=== PATIENT | female | born 1935 | race Caucasian/White ===

== ENCOUNTER → 2016-12-18 | Outpatient (CLI) | payer MEDICARE, BC ==
[~2016-12-18] MED LIST: BENI20TA26 PO; ZOFR4TAB3 SL
--- NOTE | 2016-12-22 09:55 | RSPPFT ---
DATE OF PROCEDURE: 12/18/16 COMMENTS: VOLUMES DYNAMIC: FVC and FEV1 moderately reduced. STATIC: TLC, VTG normal; RV mildly increased. FLOWS: FEV1% normal; FEF 25-75 severely reduced. DIFFUSION: Normal. FLOW VOLUME LOOP: Terminal airflow obstruction. IMPRESSION: Mild to moderate obstructive ventilatory defect with mild hyperinflation. Diffusion is normal. Airways resistance is mildly increased. There is minimal change post-bronchodilator.
== END ==
LOC: HRSP 12:35
PROVIDERS: ATTEND Internal Medicine
DX: J45.909 Unspecified asthma, uncomplicated (principal)
CPT/HCPCS: 94060; 94620; 94726; 94729; 95012

== ENCOUNTER 2017-12-19 20:07 | Emergency (ER) | payer MEDICARE, BC ==
[2017-12-19 20:12] VITALS: BP 204/87; PULSE 81; RESP 20; TEMP 98.2; O2SAT 95
[2017-12-19] MEDS ORDERED: KETOROLAC TROMETHAMINE 30 MG/ML (IVP) VIAL IV PUSH ONE (20:45)
[2017-12-19] MEDS ORDERED: SODIUM CHLOR 0.9% 1000 ML INJ 1,000 ML IV SCH (20:45)
[2017-12-19] MEDS ORDERED: ONDANSETRON HCL 4 MG/2 ML VIAL IV PUSH ONE (20:45)
[2017-12-19] MEDS ORDERED: SODIUM CHLORIDE 0.9% FLUSH 10 ML FLUSH IVF PRN (20:45)
[2017-12-19 20:48] LABS: BASOPHIL % 0.5 % (0.0-2.0); EOSINOPHIL # 0.2 TH/MM3 (0-0.4); EOSINOPHIL % 2.4 % (0.0-4.0); HEMATOCRIT 38.3 % (35.0-46.0); HEMOGLOBIN 12.3 GM/DL (11.6-15.3); LYMPH % 33.9 % (9.0-44.0); LYMPHOCYTE # 2.6 TH/MM3 (1.0-4.8); MEAN CELL VOLUME 82.2 FL (80.0-100.0); MEAN CORPUSCULAR HEMOGLOBIN 26.3 PG (27.0-34.0); MEAN PLATELET VOLUME 7.8 FL (7.0-11.0); MONO % 10.2 % (0.0-8.0); MONOCYTE # 0.8 TH/MM3 (0-0.9); PLATELET COUNT 271 TH/MM3 (150-450); RED BLOOD COUNT 4.66 MIL/MM3 (4.00-5.30); RED CELL DISTRIBUTION WIDTH 14.3 % (11.6-17.2); WHITE BLOOD COUNT 7.6 TH/MM3 (4.0-11.0)
[2017-12-19 20:55] LABS: BILIRUBIN, URINE NEG (NEG); BLOOD, URINE NEG (NEG); CHLORIDE 106 MEQ/L (98-107); GLUCOSE,URINE NEG (NEG); KETONE, URINE 40 mg/dL (NEG); NITRITE,URINE NEG (NEG); PH, URINE 5.5 (5.0-8.5); SODIUM (NA) 139 MEQ/L (136-145); URINE COLOR YELLOW (YELLW/STRAW); URINE LEUKOCYTE ESTERASE SMALL (NEG)
[2017-12-19 20:59] LABS: ALBUMIN 3.9 GM/DL (3.4-5.0); BICARBONATE 24.1 MEQ/L (21.0-32.0); BLOOD UREA NITROGEN 17 MG/DL (7-18); CALCIUM 9.1 MG/DL (8.5-10.1); GLUCOSE,RANDOM 91 MG/DL (74-106)
[2017-12-19 21:02] LABS: ALT (GPT) 22 U/L (10-53); AST (GOT) 29 U/L (15-37); GLOMERULAR FILTRATION RATE 69 ML/MIN (>89)
[2017-12-19 21:04] LABS: TOTAL BILIRUBIN ADULT 0.6 MG/DL (0.2-1.0); TOTAL PROTEIN 7.8 GM/DL (6.4-8.2)
[2017-12-19 21:05] LABS: ALKALINE PHOSPHATASE 59 U/L (45-117)
[2017-12-19 21:27] LABS: MUCUS URINE OCC /lpf (OCC); SQUAMOUS EPITHELIAL CELL URINE 0-5 /hpf (0-5)
[2017-12-19 21:28] LABS: WHITE BLOOD CELL CLUMPS RARE
--- NOTE | 2017-12-19 21:28 | RADRPT ---
EXAM DATE/TIME: 12/19/2017 21:02 [facility] COMPARISON: CT ABDOMEN & PELVIS W/O CONTRAST, November 21, 2015, 14:53. INDICATIONS : Right flank pain. ORAL CONTRAST: No oral contrast ingested. RADIATION DOSE: 5.71 CTDIvol (mGy) MEDICAL HISTORY : Carcinoma, breast. Cerebrovascular disease. Hypertension.Migraines. SURGICAL HISTORY : Appendectomy. Hysterectomy. ENCOUNTER: Initial ACUITY: 1 day PAIN SCALE: 9/10 LOCATION: Right flank TECHNIQUE: Volumetric scanning of the abdomen and pelvis was performed. Using automated exposure control and ad justment of the mA and/or kV according to patient size, radiation dose was kept as low as reasonably achievable to obtain optimal diagnostic quality images. DICOM format image data is available electro nically for review and comparison. FINDINGS: LOWER LUNGS: The visualized lower lungs are clear. LIVER: The visualized portions of the liver demonstrate homogeneous density without lesion. There is no dil ation of the biliary tree. No calcified gallstones. SPLEEN: Normal size without lesion. PANCREAS: Within normal limits. KIDNEYS: Normal in size and shape. There is no mass, stone, or hydronephrosis. ADRENAL GLANDS: Within normal limits. Arterial calcifications are present. VASCULAR: There is no aortic aneurysm. BOWEL/MESENTERY: There are scattered colonic diverticula in the sigmoid region. ABDOMINAL WALL: Within normal limits. RETROPERITONEUM: There is no lymphadenopathy. BLADDER: No wall thickening or mass. REPRODUCTIVE: Within normal limits. INGUINAL: There is no lymphadenopathy or hernia. MUSCULOSKELETAL: There is grade 1 anterior spondylolisthesis of L4 and L5. There is facet hypertrophy at this level. CONCLUSION: 1. No acute abnormality seen. No renal stones are seen. 2. Scattered colonic diverticula without inflammatory change. 3. Grade 1 anterior spondylolisthesis of L4 and L5 secondary to facet hypertrophy. Aman Sanders MD on December 19, 2017 at 21:22 Board Certified Radiologist. This report was verified electronically.
[2017-12-19 21:29] LABS: RBC, URINE 0-3 /hpf (0-3)
[2017-12-19 21:30] VITALS: BP 158/85; PULSE 85; RESP 16; TEMP 98.3; O2SAT 97; O2SAT 98
[2017-12-19] MEDS ORDERED: NITROFURANTOIN MONOHYD MACROCR 100 MG CAP PO ONE (22:30)
--- NOTE | 2017-12-19 22:47 | PD ---
HPI Chief Complaint: Flank/Kidney Pain Time Seen by Provider: 20:35 Travel History International Travel<30 days: No Contact w/Intl Traveler<30days: No Traveled to known affect area: No History of Present Illness HPI 81-year-old female presents to the emergency department for sudden onset right- sided flank pain radiating. Sudden onset today with worsening symptoms this evening. Says she was nausea no vomiting no diarrhea. Patient denies dietary indiscretion well water ingestion or foreign travel. Patient denies history of kidney stones. Patient denies history of injury or fall. Patient is unable to identify exacerbating or alleviating factors. PFSH Past Medical History Narrative Medical Dyslipidemia hypertension TIA; nursing notes REVIEWED Cardiovascular Problems: Yes (HTN, CHOL) High Cholesterol: Yes Cerebrovascular Accident: Yes (TIA) Diminished Hearing: No Hypertension: Yes Immunizations Current: Yes Migraines: Yes (HERIDITARY HEMIPLEGIC SILENT MIGRAINES) Tetanus Vaccination: > 5 Years Past Surgical History Appendectomy: Yes Hysterectomy: Yes Tonsillectomy: Yes Other Surgery: Yes (left breast for CA) Family History Family Myocardial Infarction: Yes Social History Alcohol Use: No Tobacco Use: No Substance Use: No Allergies-Medications (Allergen,Severity, Reaction): Coded Allergies: codeine (Unverified Allergy, Severe, COMA, 12/20/17) diatrizoate meglumine (Unverified Allergy, Severe, Hives, 12/20/17) PT STATES SHE PASSED OUT FROM EVENT WHEN GIVEN doxycycline (Unverified Allergy, Severe, Hives, 12/20/17) gadobenic acid (Unverified Allergy, Severe, Hives, 12/20/17) PT STATES SHE PASSED OUT FROM EVENT WHEN GIVEN gadodiamide (Unverified Allergy, Severe, Hives, 12/20/17) PT STATES SHE PASSED OUT FROM EVENT WHEN GIVEN gadoteridol (Unverified Allergy, Severe, Hives, 12/20/17) PT STATES SHE PASSED OUT FROM EVENT WHEN GIVEN iodixanol (Unverified Allergy, Severe, Hives, 12/20/17) PT STATES SHE PASSED OUT FROM EVENT WHEN GIVEN iohexol (Unverified Allergy, Severe, Hives, 12/20/17) PT STATES SHE PASSED OUT FROM EVENT WHEN GIVEN levofloxacin (Unverified Allergy, Severe, Nausea/Vomiting, 12/20/17) minocycline (Unverified Allergy, Severe, Hives, 12/20/17) morphine (Unverified Allergy, Severe, Nausea/Vomiting, 12/20/17) shellfish derived (Unverified Allergy, Severe, Hives, 12/20/17) tigecycline (Unverified Allergy, Severe, Hives, 12/20/17) Uncoded Allergies: TETANUS (Allergy, Severe, Itching, 01/04/14) Reported Meds & Prescriptions Reported Meds & Active Scripts Active Macrobid (Nitrofurantoin Monoh/Nitrofur Macro) 100 Mg Cap 100 Mg PO BID 7 Days Valtrex (Valacyclovir HCl) 1,000 Mg Tab 1,000 Mg PO TID 7 Days Reported Benicar Hct (Olmesartan-Hydrochlorothiazide) 20-12.5 mg Tab 1 Tab PO DAILY Review of Systems Except as stated in HPI: all other systems reviewed are Neg Physical Exam Narrative GENERAL: Well-developed well-nourished female in obvious discomfort appearing younger than her stated age no respiratory distress. SKIN: Warm and dry. HEAD: Normocephalic. EYES: No scleral icterus. No injection or drainage. NECK: Supple, trachea midline. No JVD or lymphadenopathy. CARDIOVASCULAR: Regular rate and rhythm without murmurs, gallops, or rubs. RESPIRATORY: Breath sounds equal bilaterally. No accessory muscle use. GASTROINTESTINAL: Abdomen soft, non-tender, nondistended. MUSCULOSKELETAL: No cyanosis, or edema. BACK: Nontender without obvious deformity. No CVA tenderness. Data Data Last Documented VS Vital Signs Date Time Temp Pulse Resp B/P (MAP) Pulse Ox O2 Delivery O2 Flow Rate FiO2 12/19/17 23:22 87 16 180/85 (116) 97 Room Air 12/19/17 20:12 98.2 Orders Orders Complete Blood Count With Diff (12/19/17 20:35) Comprehensive Metabolic Panel (12/19/17 20:35) Urinalysis - C+S If Indicated (12/19/17 20:35) Ct Abd/Pel W/O Iv Contrast (12/19/17 20:35) Ecg Monitoring (12/19/17 20:35) Iv Access Insert/Monitor (12/19/17 20:35) Ketorolac Inj (Toradol Inj) (12/19/17 20:45) Ondansetron Inj (Zofran Inj) (12/19/17 20:45) Sodium Chloride 0.9% Flush (Ns Flush) (12/19/17 20:45) Sodium Chlor 0.9% 1000 Ml Inj (Ns 1000 M (12/19/17 20:45) Urine Culture (12/19/17 20:40) Nitrofurantoin Monohyd Macrocr (Macrobid (12/19/17 22:30) Ed Discharge Order (12/19/17 23:25) Labs Laboratory Tests Test 12/19/17 20:40 White Blood Count 7.6 TH/MM3 Red Blood Count 4.66 MIL/MM3 Hemoglobin 12.3 GM/DL Hematocrit 38.3 % Mean Corpuscular Volume 82.2 FL Mean Corpuscular Hemoglobin 26.3 PG Mean Corpuscular Hemoglobin Concent 32.0 % Red Cell Distribution Width 14.3 % Platelet Count 271 TH/MM3 Mean Platelet Volume 7.8 FL Neutrophils (%) (Auto) 53.0 % Lymphocytes (%) (Auto) 33.9 % Monocytes (%) (Auto) 10.2 % Eosinophils (%) (Auto) 2.4 % Basophils (%) (Auto) 0.5 % Neutrophils # (Auto) 4.0 TH/MM3 Lymphocytes # (Auto) 2.6 TH/MM3 Monocytes # (Auto) 0.8 TH/MM3 Eosinophils # (Auto) 0.2 TH/MM3 Basophils # (Auto) 0.0 TH/MM3 CBC Comment DIFF FINAL Differential Comment Urine Collection Type CLEAN CATCH Urine Color YELLOW Urine Turbidity CLEAR Urine pH 5.5 Urine Specific [place] 1.015 Urine Protein NEG mg/dL Urine Glucose (UA) NEG mg/dL Urine Ketones 40 mg/dL Urine Occult Blood NEG Urine Nitrite NEG Urine Bilirubin NEG Urine Urobilinogen 0.2 MG/DL Urine Leukocyte Esterase SMALL Urine RBC 0-3 /hpf Urine WBC 3-5 /hpf Urine WBC Clumps RARE Urine Squamous Epithelial Cells 0-5 /hpf Urine Mucus OCC /lpf Microscopic Urinalysis Comment CULTURE INDICATED Blood Urea Nitrogen 17 MG/DL Creatinine 0.80 MG/DL Random Glucose 91 MG/DL Total Protein 7.8 GM/DL Albumin 3.9 GM/DL Calcium Level 9.1 MG/DL Alkaline Phosphatase 59 U/L Aspartate Amino Transf (AST/SGOT) 29 U/L Alanine Aminotransferase (ALT/SGPT) 22 U/L Total Bilirubin 0.6 MG/DL Sodium Level 139 MEQ/L Potassium Level 3.6 MEQ/L Chloride Level 106 MEQ/L Carbon Dioxide Level 24.1 MEQ/L Anion Gap 9 MEQ/L Estimat Glomerular Filtration Rate 69 ML/MIN MDM Medical Decision Making Medical Screen Exam Complete: Yes Emergency Medical Condition: Yes Medical Record Reviewed: Yes Interpretation(s) CBC & BMP Diagram 12/19/17 20:40 Total Protein 7.8, Albumin 3.9, Calcium Level 9.1, Alkaline Phosphatase 59, Aspartate Amino Transf (AST/SGOT) 29, Alanine Aminotransferase (ALT/SGPT) 22, Total Bilirubin 0.6 Vital Signs Date Time Temp Pulse Resp B/P (MAP) Pulse Ox O2 Delivery O2 Flow Rate FiO2 12/19/17 20:12 98.2 81 20 204/87 (126) 95 Last Impressions Abdomen/Pelvis CT 12/19/172034 Signed Impressions: Service Date/Time: Thursday, December 19, 2017 21:02 - CONCLUSION: 1. No acute abnormality seen. No renal stones are seen. 2. Scattered colonic diverticula without inflammatory change. 3. Grade 1 anterior spondylolisthesis of L4 and L5 secondary to facet hypertrophy. Aman Sanders MD Differential Diagnosis Flank pain, UTI, biliary colic, renal colic, muscular skeletal pain, shingles Narrative Course IV access obtained specimens collected and sent for resulting patient sent for imaging study Patient voices no concerns or complaints at this time following IV fluid bolus and administration of Toradol Patient identified to have abnormal urinalysis and given first dose of antibiotic in the emergency department CT imaging reveals no acute source for patient's pain and discomfort. Patient informed of imaging results and stable for outpatient management and close follow-up with primary care provider. Diagnosis Primary Impression: Flank pain, acute Additional Impressions: Rash and nonspecific skin eruption Cystitis Referrals: Primary Care Physician 2 days Patient Instructions: General Instructions Additional Instructions: Follow-up with primary care provider call office on Thursday Take antiviral agent if notice increase in rash; as this needs to be started within 7-2 hours of onset of symptoms for effect Take as tolerated ibuprofen may take maximum 600 mg as often as every 6-8 hours for pain associated inflammation avoid use for greater than 2-3 days the aware can cause stomach upset kidney issues and intestinal bleeding Apply warm moist compresses to the back area for comfort as needed Take acetaminophen/Tylenol every 4-6 hours as needed for fever 100.4F or greater or for minor pain Take blood pressure medication as prescribed Med/Other Pt SpecificInfo: Prescription(s) given Scripts Nitrofurantoin Monohydrate Macrocrystals (Macrobid) 100 Mg Cap 100 MG PO BID for Infection for 7 Days, #14 CAP 0 Refills Prov: Mayra Szymanski MD 12/19/17 Valacyclovir (Valtrex) 1,000 Mg Tab 1000 MG PO TID for Mgmt Viral Infection for 7 Days, #90 TAB 0 Refills Prov: Mayra Szymanski MD 12/19/17 Disposition: 01 DISCHARGE HOME Condition: Stable Mayra Szymanski MD Dec 19, 2017 22:47
[2017-12-19 23:22] VITALS: BP 180/85; PULSE 87; RESP 16; O2SAT 97
[2017-12-19] MEDS ORDERED: VALT1TAB PO (23:29)
[2017-12-19] MEDS ORDERED: MACR100C2 PO (23:32)
[2017-12-20] MEDS ORDERED: BENI20TA3 PO (15:42)
== END 2017-12-19 23:30 | disposition home or self-care (01) ==
LOC: PHED 20:07
DX: R10.9 Unspecified abdominal pain (principal); K57.30 Diverticulosis of large intestine without perforation or abscess without bleeding; M43.16 Spondylolisthesis, lumbar region; R21 Rash and other nonspecific skin eruption; N30.90 Cystitis, unspecified without hematuria; E78.00 Pure hypercholesterolemia, unspecified; I10 Essential (primary) hypertension; Z86.73 Personal history of transient ischemic attack (TIA), and cerebral infarction without residual deficits; Z88.5 Allergy status to narcotic agent
CPT/HCPCS: 74176; 80053; 81001; 85025; 87086; 96361; 96374; 96375; 99284; J1885; J2405; J7030

== ENCOUNTER 2017-12-20 13:47 | Emergency (ER) | payer MEDICARE, BC ==
[~2017-12-20] VITALS: Ht 154.9 cm; Wt 64.5 kg
[~2017-12-20 13:47] MED LIST changes: +MACR100C2 PO; +VALT1TAB PO
[2017-12-20 14:04] VITALS: BP 197/83; PULSE 83; RESP 18; TEMP 98; O2SAT 94
[2017-12-20 15:09] VITALS: BP_SYST 184; PULSE 84; RESP 18; O2SAT 95
[2017-12-20] MEDS ORDERED: BENI20TA3 PO (15:42)
[2017-12-20 15:45] VITALS: BP 193/83
--- NOTE | 2017-12-20 15:56 | PD ---
HPI Chief Complaint: Abdominal Pain Time Seen by Provider: 15:34 Travel History International Travel<30 days: No Contact w/Intl Traveler<30days: No Traveled to known affect area: No History of Present Illness HPI Patient is an 82-year-old female presents emergency department for the second time in 24 hours for evaluation of right lower quadrant abdominal pain wrapping around her flank. Patient denies any nausea vomiting diarrhea constipation. She states the pain is rather severe. She was here yesterday and had a fairly complete workup including CT of her abdomen which showed no concerning pathology. Location is right lower quadrant, radiation as above, context as above, severity as above. PFSH Past Medical History Cardiovascular Problems: Yes High Cholesterol: Yes Cerebrovascular Accident: Yes (TIA) Diminished Hearing: No Hypertension: Yes Immunizations Current: Yes Migraines: Yes (HERIDITARY HEMIPLEGIC SILENT MIGRAINES) Influenza Vaccination: No ?: Not Past Surgical History Appendectomy: Yes Hysterectomy: Yes Tonsillectomy: Yes Other Surgery: Yes (lumpectomy) Family History Family Myocardial Infarction: Yes Social History Alcohol Use: No Tobacco Use: No Substance Use: No Allergies-Medications (Allergen,Severity, Reaction): Coded Allergies: codeine (Unverified Allergy, Severe, COMA, 12/20/17) diatrizoate meglumine (Unverified Allergy, Severe, Hives, 12/20/17) PT STATES SHE PASSED OUT FROM EVENT WHEN GIVEN doxycycline (Unverified Allergy, Severe, Hives, 12/20/17) gadobenic acid (Unverified Allergy, Severe, Hives, 12/20/17) PT STATES SHE PASSED OUT FROM EVENT WHEN GIVEN gadodiamide (Unverified Allergy, Severe, Hives, 12/20/17) PT STATES SHE PASSED OUT FROM EVENT WHEN GIVEN gadoteridol (Unverified Allergy, Severe, Hives, 12/20/17) PT STATES SHE PASSED OUT FROM EVENT WHEN GIVEN iodixanol (Unverified Allergy, Severe, Hives, 12/20/17) PT STATES SHE PASSED OUT FROM EVENT WHEN GIVEN iohexol (Unverified Allergy, Severe, Hives, 12/20/17) PT STATES SHE PASSED OUT FROM EVENT WHEN GIVEN levofloxacin (Unverified Allergy, Severe, Nausea/Vomiting, 12/20/17) minocycline (Unverified Allergy, Severe, Hives, 12/20/17) morphine (Unverified Allergy, Severe, Nausea/Vomiting, 12/20/17) shellfish derived (Unverified Allergy, Severe, Hives, 12/20/17) tigecycline (Unverified Allergy, Severe, Hives, 12/20/17) Uncoded Allergies: TETANUS (Allergy, Severe, Itching, 01/04/14) Reported Meds & Prescriptions Reported Meds & Active Scripts Active Macrobid (Nitrofurantoin Monoh/Nitrofur Macro) 100 Mg Cap 100 Mg PO BID 7 Days Valtrex (Valacyclovir HCl) 1,000 Mg Tab 1,000 Mg PO TID 7 Days Reported Benicar Hct (Olmesartan-Hydrochlorothiazide) 20-12.5 mg Tab 1 Tab PO DAILY Review of Systems Except as stated in HPI: all other systems reviewed are Neg Physical Exam Narrative GENERAL: Well-developed well-nourished no obvious distress SKIN: Focused skin assessment warm/dry. HEAD: Atraumatic. Normocephalic. EYES: Pupils equal and round. No scleral icterus. No injection or drainage. ENT: No nasal bleeding or discharge. Mucous membranes pink and moist. NECK: Trachea midline. No JVD. CARDIOVASCULAR: Regular rate and rhythm. No murmur appreciated. RESPIRATORY: No accessory muscle use. Clear to auscultation. Breath sounds equal bilaterally. GASTROINTESTINAL: Abdomen soft, non-tender, nondistended. Hepatic and splenic margins not palpable. No rebound no percussive tenderness, no rash no lesion, her belly is completely benign MUSCULOSKELETAL: No obvious deformities. No clubbing. No cyanosis. No edema. NEUROLOGICAL: Awake and alert. No obvious cranial nerve deficits. Motor grossly within normal limits. Normal speech. PSYCHIATRIC: Appropriate mood and affect; insight and judgment normal. Data Data Last Documented VS Vital Signs Date Time Temp Pulse Resp B/P (MAP) Pulse Ox O2 Delivery O2 Flow Rate FiO2 12/20/17 16:09 12/20/17 15:09 84 18 95 12/20/17 14:04 98.0 Orders Orders Ed Discharge Order (12/20/17 15:56) MDM Medical Decision Making Medical Screen Exam Complete: Yes Emergency Medical Condition: Yes Differential Diagnosis Acute abdomen highly unlikely, abdominal wall pain, appendicitis is already been excluded once today. Narrative Course Patient room to the emergency department, complains of right lower quadrant abdominal pain. Her abdomen is completely benign, no rash appreciated. She had a fairly complete workup yesterday including a CAT scan of her abdomen which showed no acute abnormality. Abdomen is benign currently there is no indication further workup at this time. She stable for discharge to follow-up with a primary care physician Diagnosis Primary Impression: RLQ abdominal pain Additional Instructions: Follow-up with your regular physician for management of your blood pressure and abdominal pain. No definitive cause of your abdominal pain is been identified in her ER visit today. Disposition: 01 DISCHARGE HOME Condition: Stable Rashard Alfred MD Dec 20, 2017 15:56
== END 2017-12-20 16:11 | disposition home or self-care (01) ==
LOC: PHED 13:47
DX: R10.31 Right lower quadrant pain (principal); E78.00 Pure hypercholesterolemia, unspecified; I10 Essential (primary) hypertension; Z86.73 Personal history of transient ischemic attack (TIA), and cerebral infarction without residual deficits; Z79.899 Other long term (current) drug therapy; Z88.5 Allergy status to narcotic agent; Z88.8 Allergy status to other drugs, medicaments and biological substances
CPT/HCPCS: 99281